=== PATIENT | male | born 1970 | race Caucasian/White ===

== ENCOUNTER 2021-07-07 16:33 | Emergency (ER) | payer OTHER ==
[~2021-07-07] VITALS: Ht 180.3 cm; Wt 94.0 kg
[2021-07-07 16:50] VITALS: BP 152/92
[2021-07-07 17:00] VITALS: BP 136/93
[2021-07-07 17:02] LABS: HEMATOCRIT 46.3 % (39.0-50.0); HEMOGLOBIN 16.1 g/dl (14.0-18.0); MEAN CELL VOLUME 85.6 fL CALC (80.0-100.0); MEAN CORPUSCULAR HGB 29.8 pG CALC (26.0-32.0); MEAN CORPUSCULAR HGB CONC 34.8 g/dL CAL (32.0-36.0); NEUT# 7.82 thou/uL (1.82-7.42); RED BLOOD COUNT 5.41 mill/uL (4.70-6.10); RED CELL DISTRI WIDTH 13.7 % (11.5-15.5)
[2021-07-07 17:15] VITALS: BP 137/91
[2021-07-07 17:16] LABS: ALKALINE PHOSPHATASE 78 u/l (38-126); ANION GAP 19 (6-22 (CALC)); BILIRUBIN, TOTAL 1.2 mg/dL (0.0-1.4); BUN 8 mg/dL (9-20); BUN/CREATININE RATIO 7 (12-20 (CALC)); CARBON DIOXIDE 19 mmol/l (22-30); CHLORIDE 101 mmol/l (95-108); CREATININE 1.1 mg/dL (0.7-1.3); GFR > 60 ML/MIN (>=60 (CALC)); GFR FOR AFR.AMER. > 60 ML/MIN (>=60 (CALC)); SGOT/AST 38 u/l (17-59); SODIUM 135 mmol/l (137-146)
[2021-07-07 17:30] VITALS: BP 123/88
[2021-07-07 17:46] VITALS: BP 72/51
== END 2021-07-07 18:00 | disposition home or self-care (01) | DRG 313 ==
LOC: ED 16:33
PROVIDERS: Family Medicine
DX: R07.9 Chest pain, unspecified (principal)